=== PATIENT | female | born 1985 | race Two or more races ===

== ENCOUNTER 2024-10-25 12:36 | Outpatient (CLI) | payer OTHER | END 2024-10-25 12:53 | disposition home or self-care (01) | LOC: MAMO-SONO 12:36 | PROVIDERS: ATTEND Obstetrics & Gynecology | DX: N60.19 Diffuse cystic mastopathy of unspecified breast (principal); N60.11 Diffuse cystic mastopathy of right breast; N60.12 Diffuse cystic mastopathy of left breast; R10.2 Pelvic and perineal pain ==